=== PATIENT | female | born 1965 | race Caucasian/White ===

== ENCOUNTER → 2020-08-19 | Outpatient (CLI) | payer OTHER ==
[2020-08-20 07:11] LABS: HBSAG SCREEN Negative (Negative); HEP B CORE AB, TOT Negative (Negative); RHEUMATOID ARTHRITIS FACTOR 10.3 IU/mL (0.0-13.9)
[2020-08-20 10:26] LABS: HEMOGLOBIN 14.7 gm/dl (12.3-15.3); RED BLOOD COUNT 4.72 M/UL (4.00-5.10); WHITE BLOOD COUNT 7.3 K/UL (4.5-11.0)
[2020-08-20 11:14] LABS: HCV AB <0.1 (0.0-0.9)
[2020-08-21 00:12] LABS: CCP ANTIBODIES IGG/IGA 5 units (0-19)
[2020-08-22 06:11] LABS: QUANTIFERON MITOGEN VALUE >10.00 IU/mL (.); QUANTIFERON NIL VALUE 0.15 IU/mL (.); QUANTIFERON TB1 AG VALUE 0.07 IU/mL (.); QUANTIFERON TB2 AG VALUE 0.04 IU/mL (.); QUANTIFERON-TB GOLD PLUS Negative (Negative)
== END ==
LOC: LAB 14:08
PROVIDERS: Nurse Practitioner Family
DX: Z11.59 Encounter for screening for other viral diseases (principal); Z89.9 Acquired absence of limb, unspecified; M25.50 Pain in unspecified joint; R76.8 Other specified abnormal immunological findings in serum
CPT/HCPCS: 36415; 83520; 85025; 85652; 86140; 86200; 86431; 86704; 86803; 87340